=== PATIENT | male | born 1970 | race Caucasian/White ===

== ENCOUNTER 2019-04-27 02:30 | Outpatient (CLI) | payer BC, SELFPAY ==
[2019-04-27 11:16] LABS: HCT 44.7 % (40.0-50.0); HGB 15.2 g/dL (13.5-17.5); Mean Corpuscular Hemoglobin 33.2 pg (27.0-33.0); Mean Corpuscular Volume 97.6 fL (80-95); Mean Platelet Volume 10.4 fL (8.0-11.0); Platelet Count 251 x1000/uL (130-400); RBC 4.58 m/cumm (4.50-6.00); RBC Distribution Width 11.8 % (11.8-14.1); White Blood Cell Count 4.51 k/cumm (4.4-10.8)
[2019-04-27 11:41] LABS: ALT 61 U/L (16-63); AST 31 U/L (15-37); Albumin 4.3 g/dL (3.4-5.0); Alkaline Phosphatase 76 U/L (46-116); Anion Gap 9.9 mmol/L (3-11); BUN 18 mg/dL (7-18); Bilirubin, Total 0.9 mg/dL (0.2-1.0); CO2 30.1 mmol/L (21.0-32.0); Calcium 9.6 mg/dL (8.5-10.1); Chloride 102 mmol/L (98-107); GGT 58 U/L (15-85); Glucose 134 mg/dL (70-100); Potassium 4.3 mmol/L (3.5-5.1); Sodium 142 mmol/L (136-145); TSH 2.36 uIU/mL (0.36-3.74); Total Protein 7.3 g/dL (6.4-8.2)
[2019-04-27 13:40] LABS: Hemoglobin A1C 5.2 % (4.5-6.2)
== END 2019-04-27 02:50 ==
PROVIDERS: PCP Emergency Medicine; Visit Provider Emergency Medicine
DX: E03.9 Hypothyroidism, unspecified (principal); E11.9 Type 2 diabetes mellitus without complications; R53.83 Other fatigue; R53.1 Weakness
CPT/HCPCS: 36415; 80053; 85027; 82977; 83036; 84443

== ENCOUNTER 2019-05-31 16:41 | Outpatient (CLI) | payer BC, SELFPAY ==
--- NOTE | 2019-05-31 16:04 | DI.RAD_ITS ---
EXAM: XR SHOULDER RT COMPLETE 2+V INDICATION: pain M25.511. COMPARISON: No exams were available for comparison TECHNIQUE: 2D digital imaging was performed. FINDINGS: No fracture or dislocation is seen. The AC joint and glenohumeral joints are unremarkable. No tendo n or joint space calcifications are seen. There is minimal spurring at the tip of the acromion and m argin of the glenoid. IMPRESSION: Minimal degenerative changes.
== END 2019-05-31 17:01 ==
PROVIDERS: PCP Emergency Medicine; Visit Provider Emergency Medicine
DX: M25.511 Pain in right shoulder (principal); M19.011 Primary osteoarthritis, right shoulder
CPT/HCPCS: 73030

== ENCOUNTER 2021-09-03 14:45 | Outpatient (CLI) | payer BC, SELFPAY ==
--- NOTE | 2021-09-03 14:45 | RT.EKG_ITS ---
APPROVED REPORT Exam: Resting ECG Reason for Exam: a-rod Patient Location: O HR:60 bpm ECG Measurements Heart Rate 60 AXIS NV 165 P 48 QRSd 94 QRS 82 QT 413 T 41 QTc 414 Conclusion Sinus rhythm...normal P axis, V-rate 60- 99 Normal Electrocardiogram
== END 2021-09-03 14:46 | disposition home or self-care (01) ==
PROVIDERS: PCP Family Medicine; Visit Provider Family Medicine
DX: R00.2 Palpitations; I48.91 Unspecified atrial fibrillation
CPT/HCPCS: 93010

== ENCOUNTER 2021-09-10 01:38 | Outpatient (CLI) | payer BC, SELFPAY ==
[2021-09-10 07:37] LABS: HCT 43.3 % (40.0-50.0); HGB 14.9 g/dL (13.5-17.5); MCH 33.9 pg (27.0-33.0); MCHC 34.4 % (32.0-36.0); MCV 98.4 fL (80-95); MPV 9.7 fL (8.0-11.0); Platelet Count 226 10^3/uL (130-400); RDW 11.6 % (11.8-14.1); WBC 5.82 10^3/uL (4.4-10.8)
[2021-09-10 08:00] LABS: Hemoglobin A1C 5.2 % (<5.7)
[2021-09-10 08:32] LABS: ALT 52 U/L (16-63); AST 29 U/L (15-37); Alkaline Phosphatase 75 U/L (46-116); BUN 17 mg/dL (7-18); Bilirubin, Total 0.4 mg/dL (0.2-1.0); CREATININE 1.1 mg/dL (0.70-1.30); Calcium 9.1 mg/dL (8.5-10.1); Calculated LDL 120 mg/dL (<100); Chloride 105 mmol/L (98-107); Cholesterol 188 mg/dL (<200); Glucose 97 mg/dL (74-106); HDL Cholesterol 52 mg/dL (40-60); Potassium 4.3 mmol/L (3.5-5.1); Sodium 140 mmol/L (136-145); TSH (W/Ref FT4) 2.66 uIU/mL (0.36-3.74); Total Protein 6.9 g/dL (6.4-8.2); Triglyceride 81 mg/dL (<150)
[2021-09-10 18:12] LABS: PSA, Screening 1.2 ng/mL (0.0-2.5)
[2021-09-11 10:25] LABS: HIV-1/2 Ag & Ab Screen Negative (Negative)
[2021-09-11 10:42] LABS: Hepatitis C Ab w Rflx HCV PCR Negative (Negative)
== END 2021-09-10 01:39 | disposition home or self-care (01) ==
LOC: LBO 01:38
PROVIDERS: PCP Family Medicine; Visit Provider Family Medicine
DX: Z00.00 Encounter for general adult medical examination without abnormal findings (principal); I10 Essential (primary) hypertension; R00.2 Palpitations; R73.9 Hyperglycemia, unspecified; Z11.59 Encounter for screening for other viral diseases; Z13.6 Encounter for screening for cardiovascular disorders; Z12.5 Encounter for screening for malignant neoplasm of prostate; Z11.4 Encounter for screening for human immunodeficiency virus [HIV]
CPT/HCPCS: 36415; 80053; 80061; 84153; 85027; 86803; 87389; 83036; 84443

== ENCOUNTER 2023-05-29 07:09 | Day surgery (SDC) | payer BC, SELFPAY ==
--- NOTE | 2023-05-28 15:50 | PDOC.DSDIS_ITS ---
Date of service: 05/29/23 Time of Service: 09:27 Discharge Plan Disposition Patient Disposition: Home Condition: Good Discharge Details Reason For Visit: Colon cancer screening Attending Provider: Tika Parra Primary Care Provider: Joslyn Melton Discharge Instructions Additional Instructions: DSU Colonoscopy Post- Op Instructions Instructions for Everyone who is given Anesthesia: For your safety, please do the following for the next twenty-four (24) hours: *Do Not operate a motor vehicle (car, truck, motorcycle, etc.) *Do Not drink alcoholic beverages or use any recreational drugs for the first 24 hours or while taking pain medications. The medications in your body may have a reaction that can be dangerous. *Do Not make any important decisions or sign any important papers. Findings: Severe diverticula. Make sure you are moving your bowels on a regular basis and not straining to go to the bathroom. If you find you are having issues with constipation, then it is recommended that you start a fiber supplement daily such as Metamucil. Follow up: Repeat colonoscopy in 10 years time. 1. No lifting over 20 pounds or strenuous activity for the first 24 hours after your procedure. After 24 hours there are no restrictions on your activity but you may feel fatigued for a few days. 2. After you arrive home you may have a light meal and return to your normal diet as you can tolerate it without feeling sick to your stomach. 3. You may have a bloated, gaseous feeling in your belly (abdomen) after a colonoscopy. Passing gas and belching will help. Walking or lying down on your left side with your knees flexed may relieve the discomfort. Call the office at [phone] (Office) or [phone] (Hospital) right away if you notice any of the following: a.Vomiting of blood or ?coffee ground stools?. b.Rectal bleeding 1Tbsp, blood clots or continuous bleeding. c.Severe belly (abdominal) pain. d.A hard distended belly (abdomen) and an inability to pass gas. 4. Please don?t expect to have a normal BM (bowel movement) for 2-3 days after your procedure. 5. If there are questions regarding the findings of your procedure, please contact your doctor 6. If you are unable to contact your doctor with a problem, contact the hospital at [phone]. 7. Continue all your regular medications unless directed otherwise. I understand the above instructions and have no questions. Signature of Patient or Adult Escort Name of Responsible Adult Escort Signature of Nurse Date/Time Activity:: See above Diet:: See above Discharge Orders Discharge Orders: Discharge Order (Routine); Ordered 05/29/23 Ordered By: Tika Parra DS: Diagnosis Discharge Diagnosis (1) Hyperlipidemia: Status: Chronic (2) Screening for malignant neoplasm of colon performed: Status: Acute Asessment and Plan: The patient is seen and examined after their colonoscopy.? The patient has been able to pass gas.? They are not having abdominal pain.? They have been able to tolerate liquids and a snack.? They do not have any nausea or vomiting.? They are not having any chest pain or shortness of breath.??? They are not having any rectal bleeding. Their vital signs have been stable-see nursing notes. We discussed findings during their colonoscopy, and any biopsies that were done/polyps that were removed. The patient will be sent a letter with any biopsy results, and when to repeat the colonoscopy.-see discharge instructions. Patient was given explicit instructions to follow-up regarding colonoscopy-refer to discharge instructions.? We reviewed resumption of medications. Patient verbalized understanding and discharged in stable and satisfactory condition- See nursing notes.
--- NOTE | 2023-05-28 15:50 | W.COLOREPORT ---
Date of service: 05/29/23 Time of Service: 09:21 Colonoscopy Report Date of procedure: 05/29/23 Pre-op diagnosis general: Colorectal cancer in a second-degree relative Post-op diagnosis procedure note: other (Severe diverticular disease) Surgeon: Tika Parra Anesthesia Type: General:No Airway Estimated blood loss (mL): 0 Pathology: none sent Complications: None Disposition: same day Prep: Miralax/Dulcolax Retraction Time: 9 Procedure Description: After informed consent was obtained the patient was taken to the procedure room and placed in a left decubitous position. Monitors were applied and a time out was done. The patients name, date of , procedure, allergies to medications and metal in their body was reviewed. The patient was then sedated. Once sedated and comfortable a rectal exam was done. External exam was normal. Internal exam revealed a normal sphincter tone and no palpable masses. The prostate without masses. The scope was then introduced and retrofelexed. No internal hemorrhoids were identified. The scope was then advanced to the cecum without difficulty. The TI and appendiceal orifice were identified. The prep was BBPS 3 in all segments for a total of 9. The scope was then slowly retracted over 9 minutes back into the rectum. There are no polyps or AVMs. He does have severe diverticula of the sigmoid colon. The diverticula do extend all the way over to the right colon. There is no signs of active bleeding or infection the scope was removed and the patient was woken up and taken back to Same day surgery in stable condition. The patient tolerated the procedure well and there were no immediate complications. Follow up: The patient should follow up in 9 years unless they develop changes in bowel habits or other new gastrointestinal complaints.
[2023-05-29 07:15] VITALS: BP 125/92; PULSE 80; RESP 20; TEMP 36.2; O2SAT 99
[2023-05-29] MEDS: Lactated Ringers 1,000 ML 80 ML IV (07:39)
--- NOTE | 2023-05-29 08:35 | W.ANESPRE ---
General Info Date of Service Date Performed: 05/29/23 Height: 5 ft 10 in Weight: 87.4 kg Body Mass Index (BMI): 27.6 Surgical Procedure: Operation Date: 05/29/23 08:20 Proposed Procedure Side Surgeon amy Parra, Meds Allergies and Home Medications Allergies Allergy/AdvReac Type Severity Reaction Status Date / Time No Known Allergies Allergy Verified 05/29/23 07:25 Current Visit Medications: Current Medications Generic Name Dose Route Start Last Admin Trade Name Freq PRN Reason Stop Dose Admin Hyoscyamine Sulfate 0.125 mg 05/29/23 10:29 Hyoscyamine 0.125 Mg Sl/Oral/Chew SL 06/28/23 10:28 DIRECTED PRN Ringer's Solution 1,000 mls @ 80 mls/hr 05/29/23 06:00 05/29/23 07:39 IV 06/27/23 23:59 80 mls/hr INFUSION MARCUS Administration IV Miscellaneous Supplies 1 each 05/29/23 06:00 Iv Access IV 06/27/23 23:59 DIRECTED MARCUS Ondansetron HCl 4 mg 05/29/23 10:29 Ondansetron 4 Mg/2 Ml Vial IVP 06/28/23 10:28 Q4H PRN PRN Nausea / Vomiting Sodium Chloride 0 ml 05/29/23 06:00 Normal Saline Flush 10 Ml Syr IV 06/27/23 23:59 PRN PRN Sodium Chloride 0 ml 05/29/23 06:00 Normal Saline 10 Ml Vial IJ 06/27/23 23:59 DIRECTED PRN Sterile Water 0 ml 05/29/23 06:00 Water,Injection,Sterile 10 Ml Vial IJ 06/27/23 23:59 DIRECTED PRN PFSH Active Problems Active Problems: Problem Status Onset Code Screening for malignant neoplasm of colon performed Z12.11 Hyperlipidemia E78.5 Medical History Medical History Herpes zoster without complication Surgical History Surgical History No pertinent past surgical history Tobacco Smoking/Tobacco Use Status: Never Passive smoking exposure: Yes Alcohol Alcohol Intake: current Alcohol intake frequency: 0-2 drinks per day Substance Use Substance use: Occasionally Substance use type: marijuana Vital Signs and Lab Results Vital Signs Most Recent Vital Signs in EMR: Most Recent Vital Signs Temp Pulse Resp BP Pulse Ox 36.2 C L 80 20 125/92 H 99 05/29/23 07:15 05/29/23 07:15 05/29/23 07:15 05/29/23 07:15 05/29/23 07:15 Lab Results Blood Type / Crossmatch: No Data to Display Complete Blood Count: No Data to Display Complete Metabolic Panel: No Data to Display Liver Function Panel: No Data to Display Coagulation Panel: No Data to Display Cardiac Panel: No Data to Display Arterial Blood Gas: No Data to Display Venous Blood Gas: No Data to Display Pancreas Panel: No Data to Display Thyroid Panel: No Data to Display Infectious Disease: No Data to Display Blood Cultures: No Data to Display Toxicology Panel: No Data to Display Imaging and Studies Imaging and Studies Study information below may be from another EMR and interpreted by another provider. Please see original notes in EMR for more complete details. EKG Summary: 09/03/2021: Exam: Resting ECG Reason for Exam: a-fib Patient Location: O HR:60 bpm ECG Measurements Heart Rate 60 AXIS MO 165 P 48 QRSd 94 QRS 82 QT 413 T41 QTc 414 Conclusion Sinus rhythm...normal P axis, V-rate 60- 99 Normal Electrocardiogram Anesthesia Assessment and Plan Anesthesia History Personal History: No History of General Anesthesia Family History: No Family History of Anesthesia Complications Exercise Tolerance Exercise Tolerance: Metabolic Equivalents>4 Pertinent Negatives Pertinent Negatives: No Symptoms of GERD, No Major Cardiovascular Symptoms or Complaints and No Major Pulmonary Symptoms or Complaints Cardiac & Pulmonary Exam Cardiac Exam: Normal S1/S2 Heart Sounds Pulmonary Exam: Clear Bilateral Breath Sounds Implantable Cardiac Device Does patient have a Pacemaker or an ICD?: No Airway Exam Known Difficult Airway: No Mallampati Class: 1 Mouth Opening: Normal (> 3cm) Thyromental Distance: Greater than 3 cm Facial Hair: Full [place] Range of Motion: Full ROM Neck Circumference: Normal Teeth Condition: Normal Dentition ASA Classification ASA Score: ASA 2 Emergency Case?: No NPO Status NPO Status: NPO Clears >2 hours, Solids >8 hours Anesthesia Plan Resuscitation Status: Full Code Anesthesia Technique: General Anesthesia Airway Planned: Natural Airway Monitors Used: Standard Monitors
[2023-05-29 08:37] VITALS: BMI 27.6
[2023-05-29 09:39] VITALS: BP 115/79; PULSE 72; RESP 18; TEMP 36.4; O2SAT 96
--- NOTE | 2023-05-29 09:59 | W.ANESPOSTOP ---
Postoperative Evaluation Date, Time and Location Date Performed: 05/29/23 Time Performed: 10:00 Patient Location: Day Surgery Unit Vital Signs Most Recent Imported Vital Signs: Most Recent Vital Signs Temp Pulse Resp BP Pulse Ox 36.4 C L 72 18 115/79 96 05/29/23 09:39 05/29/23 09:39 05/29/23 09:39 05/29/23 09:39 05/29/23 09:39 Pain Score Most Recent Pain Score: Most Recent Pain Score Pain Level 1 05/29/23 09:39 Assessment Mental Status: Awake (Alert & Oriented to Patient Baseline) Airway and Respiratory Function: Patent airway with normal (patient baseline) respiratory exam Cardiovascular Function: Hemodynamically Stable Hydration Status: Adequately Hydrated Nausea & Vomiting: No Nausea or Vomiting Pain: Pain is tolerable per patient Peripheral Nerve Block: Patient did not receive a nerve block
== END 2023-05-29 07:10 | disposition home or self-care (01) ==
LOC: SUR 07:09
PROVIDERS: PCP Nurse Practitioner Family; Visit Provider Surgery
PROC: 0DJD8ZZ Inspection of Lower Intestinal Tract, Via Natural or Artificial Opening Endoscopic (ICD-10-PCS; CPT 45378; principal; 2023-05-29 08:15)
DX: Z12.11 Encounter for screening for malignant neoplasm of colon; Z80.0 Family history of malignant neoplasm of digestive organs; K57.30 Diverticulosis of large intestine without perforation or abscess without bleeding
CPT/HCPCS: 45378; J2001; J2704

== ENCOUNTER 2023-12-01 04:59 | Outpatient (CLI) | payer BC, SELFPAY ==
[2023-12-01 12:47] LABS: Anion Gap 8.3 mmol/L (3-11); BUN 16 mg/dL (7-18); CO2 28.7 mmol/L (21.0-32.0); CREATININE 1.1 mg/dL (0.70-1.30); Calcium 8.7 mg/dL (8.5-10.1); Calculated LDL 90 mg/dL (<100); Chloride 105 mmol/L (98-107); Cholesterol 160 mg/dL (<200); Estimated GFR 81.28 (mL/min/1.73m2); Glucose 106 mg/dL (74-106); HDL Cholesterol 52 mg/dL (40-60); Potassium 4.1 mmol/L (3.5-5.1); Sodium 142 mmol/L (136-145); Triglyceride 93 mg/dL (<150)
[2023-12-01 19:11] LABS: PSA, Screening 1.7 ng/mL (<=3.5)
[2023-12-01 19:51] LABS: HBs Antibody, Quant 3.5 mIU/mL (See Note); Hep B Surface Ab Negative (See Note); Hepatitis B Core Antibody Negative (Negative); Hepatitis B Surface Antigen Negative (Negative)
== END 2023-12-01 05:00 | disposition home or self-care (01) ==
LOC: LOS 04:59
PROVIDERS: PCP Nurse Practitioner Family; Visit Provider Nurse Practitioner Family
DX: Z12.5 Encounter for screening for malignant neoplasm of prostate (principal); Z00.00 Encounter for general adult medical examination without abnormal findings; Z11.59 Encounter for screening for other viral diseases
CPT/HCPCS: 36415; 80048; 80061; 84153; 86704; 86706; 87340